=== PATIENT | male | born 1980 | race Two or more races ===

== ENCOUNTER 2019-05-18 16:58 | Inpatient (IN) | payer MEDICAID ==
[~2019-05-18] VITALS: Ht 172.7 cm; Wt 113.4 kg
[2019-05-18 18:27] LABS: BASOPHILS % (AUTO) 0.7 % (0.0-2.0); EOSINOPHILS % (AUTO) 0.5 % (1.0-6.0); HEMATOCRIT 48.1 % (41-53); HEMOGLOBIN 16.1 g/dL (13.5-17.5); LYMPHOCYTES # (AUTO) 1.7 K/uL (1.0-4.8); MEAN CORPUSCULAR HEMOGLOBIN 30.8 pg (26.0-34.0); MEAN CORPUSCULAR HGB CONC 33.5 G/dL (31.0-37.0); MEAN CORPUSCULAR VOLUME 92 fL (80-100); MONOCYTES # (AUTO) 0.7 K/uL (0.1-1.0); MONOCYTES % (AUTO) 8.5 % (2.0-9.0); NEUTROPHILS % (AUTO) 70.3 % (40.0-70.0); PLATELET COUNT (AUTO) 321 K/uL (150-450); RED BLOOD CELL COUNT(AUTO) 5.22 MIL/uL (4.50-5.90); RED CELL DISTRIBUTION WIDTH 14.3 % (11.5-14.5)
[2019-05-18 18:34] LABS: ANION GAP 11 mmol/L (8-16); CARBON DIOXIDE 24 mmol/L (22-29); CHLORIDE 103 mmol/L (98-107); CREATININE 1.04 mg/dL (0.60-1.30); GLOMERULAR FILTR. RATE CALC > 60 mL/min (>60); GLUCOSE,RANDOM 112 mg/dL (70-110); POTASSIUM 4.1 mmol/L (3.5-5.1); SODIUM SERUM 138 mmol/L (136-145); UREA NITROGEN, BLOOD 14 mg/dL (7-18)
[2019-05-18 18:51] LABS: ALANINE AMINOTRANSFERASE 31 U/L (12-78); ALBUMIN 3.9 g/dL (3.4-5.0); ALKALINE PHOSPHATASE 141 U/L (46-116); ASPARTATE AMINOTRANSFERASE 19 U/L (15-37); BILIRUBIN,TOTAL 0.2 mg/dL (0.1-1.0); TOTAL PROTEIN, SERUM 8.1 g/dL (6.4-8.2)
[2019-05-18] MEDS ORDERED: ALBU8HFA IH (20:02)
[2019-05-18 20:25] LABS: AMPHET/METH SCREEN,URINE NEGATIVE (NEGATIVE); BARBITURATE SCREEN, URINE NEGATIVE (NEGATIVE); BENZODIAZEPINES SCREEN,URINE NEGATIVE (NEGATIVE); CANNABINOID SCREEN,URINE NEGATIVE (NEGATIVE); COCAINE SCREEN,URINE NEGATIVE (NEGATIVE); METHADONE SCREEN, URINE NEGATIVE (NEGATIVE); OPIATE SCREEN,URINE NEGATIVE (NEGATIVE)
[2019-05-18 20:28] LABS: PHENCYCLIDINE SCREEN,URINE NEGATIVE (NEGATIVE)
[2019-05-18] MEDS ORDERED: OLANZapine 5 MG RAPDIS TABLET PO PRN (22:45)
[2019-05-18] MEDS ORDERED: LORazepam 2 MG TABLET PO PRN (22:45)
[2019-05-19 01:43] VITALS: BP 141/91
[2019-05-19] MEDS ORDERED: INFLUENZA VIRUS VACCINE QVS 2019-20 (3YR+)/PF 60 MCG/0.5 ML SYRINGE IM ONE (04:45)
[2019-05-19 08:04] LABS: CHOL/HDL RATIO 6.6 (4.2-7.3)
[2019-05-19 08:20] VITALS: BP 123/66
[2019-05-19] MEDS: FLUoxetine HCL 20 MG CAPSULE PO SCH ×2 (09:00→09:06)
[2019-05-19] MEDS ORDERED: HydrOXYzine PAMOATE 50 MG CAPSULE PO PRN (15:00)
[2019-05-19] MEDS ORDERED: MAG HYDROX/AL HYDROX/SIMETH ES 30 ML SUSPENSION UDCUP PO PRN (15:00)
[2019-05-19] MEDS ORDERED: MAGNESIUM HYDROXIDE SUSPENSION 30 ML UDCUP PO PRN (15:00)
[2019-05-19] MEDS ORDERED: TUBERCULIN, PURIFIED PROTEIN DERIVATIVE 5 TU/0.1 ML SYRINGE ID ONE (15:00)
[2019-05-19] MEDS ORDERED: PROMETHAZINE HCL 25 MG TABLET PO PRN (15:00)
[2019-05-19] MEDS ORDERED: LOPERAMIDE HCL 2 MG CAPSULE PO PRN (15:00)
[2019-05-19] MEDS ORDERED: GuaiFENesin/D-METHORPHAN [SUGAR-FREE] 200-20MG/10 ML SYRUP UDCUP PO PRN (15:00)
[2019-05-19] MEDS ORDERED: ACETAMINOPHEN 325 MG TABLET PO PRN (15:00)
[2019-05-19 16:00] VITALS: BP 148/90
[2019-05-19] MEDS: THIAMINE HCL 100 MG TABLET PO SCH (16:35)
[2019-05-19] MEDS: PRAZOSIN HCL 1 MG CAPSULE PO SCH (21:05)
[2019-05-20 05:38] VITALS: BP 124/89
[2019-05-20 08:16] VITALS: BP 128/74
[2019-05-20] MEDS: NALTREXONE HCL 50 MG TABLET PO SCH (08:53)
[2019-05-20] MEDS: FOLIC ACID 1 MG TABLET PO SCH (08:53)
[2019-05-20] MEDS: MULTIVITAMINS WITH MINERALS, THERAPEUTIC TABLET PO SCH (08:53)
[2019-05-20] MEDS: THIAMINE HCL 100 MG TABLET PO SCH ×2 (08:53→17:03)
[2019-05-20] MEDS: ATORVASTATIN CALCIUM 40 MG TABLET PO SCH (08:53)
[2019-05-20] MEDS: FLUoxetine HCL 20 MG CAPSULE PO SCH (08:54)
[2019-05-20 16:00] VITALS: BP 133/79
[2019-05-20] MEDS: PRAZOSIN HCL 1 MG CAPSULE PO SCH (20:48)
[2019-05-21 05:52] VITALS: BP 130/66
[2019-05-21 08:00] VITALS: BP 134/86
[2019-05-21] MEDS: SERTRALINE HCL 50 MG TABLET PO SCH ×2 (08:41→09:00)
[2019-05-21] MEDS: MULTIVITAMINS WITH MINERALS, THERAPEUTIC TABLET PO SCH (08:42)
[2019-05-21] MEDS: FOLIC ACID 1 MG TABLET PO SCH (08:42)
[2019-05-21] MEDS: ATORVASTATIN CALCIUM 40 MG TABLET PO SCH (08:42)
[2019-05-21] MEDS: NALTREXONE HCL 50 MG TABLET PO SCH (08:42)
[2019-05-21] MEDS: THIAMINE HCL 100 MG TABLET PO SCH ×2 (08:42→16:42)
[2019-05-21] MEDS ORDERED: NALT50TA PO (12:43)
[2019-05-21] MEDS ORDERED: SERT50TA12 PO (12:43)
[2019-05-21] MEDS ORDERED: PRAZ1 PO (12:43)
[2019-05-21 16:19] VITALS: BP 128/71
== END 2019-05-21 16:55 | disposition home or self-care (01) | DRG 751 ==
LOC: EMS 17:12 → B3A 23:30 → UNDOADMIN 23:30
PROVIDERS: ADMIT Psychiatry & Neurology Psychiatry; ATTEND Psychiatry & Neurology Psychiatry
DX: F33.2 Major depressive disorder, recurrent severe without psychotic features (principal); F25.9 Schizoaffective disorder, unspecified; R45.851 Suicidal ideations; E78.5 Hyperlipidemia, unspecified; F43.10 Post-traumatic stress disorder, unspecified; J45.909 Unspecified asthma, uncomplicated; Z59.0 Homelessness; Z65.3 Problems related to other legal circumstances; Z91.14 Patient's other noncompliance with medication regimen; Z91.19 Patient's noncompliance with other medical treatment and regimen
CPT/HCPCS: G0480